=== PATIENT | female | born 1985 | race American Indian/Alaskan Native ===

== ENCOUNTER 2017-10-01 12:41 | Emergency (ER) | payer SELFPAY ==
[2017-10-01] MEDS ORDERED: TYLENOL ONE (13:42)
[2017-10-01] MEDS ORDERED: MOTRIN PO ONE (13:42)
[2017-10-01] MEDS ORDERED: GUAIFENESIN DM SYRUP PO ONE (13:42)
[2017-10-01] MEDS ORDERED: LIDOCAINE VISCOUS 2% PO ONE (13:42)
--- NOTE | 2017-10-01 14:02 | XRay Report ---
AP CHEST: HISTORY: chest pain AP view of the chest demonstrates a normal mediastinal and cardiac contour with clear lungs and normal bony and soft tissue structures. IMPRESSION: Unremarkable AP chest.
--- NOTE | 2017-10-01 14:17 | Emergency Department Report ---
ED ENT HPI - General Chief complaint: Sore Throat Stated complaint: SORE THROAT Time Seen by Provider: 10/01/17 13:23 Source: patient Mode of arrival: Ambulatory Limitations: No Limitations - History of Present Illness Initial comments: 32 year old female that comes in for sorethroat and cough for 5 days. Patient reports that [place] [facility] [place] Motrin only. No PMH NKDA. Denies any nausea, vomiting or abdominal pain. No fever but has had the chills. No PMH, NKDA only been taking Motrin. MD complaint: sore throat - Related Data Previous Rx's Medication Instructions Recorded Last Taken Type Benzonatate [Tessalon Perle] 100 mg PO TID PRN #15 capsule 10/01/17 Unknown Rx Ibuprofen 800 mg PO Q8H #15 tablet 10/01/17 Unknown Rx Allergies Allergy/AdvReac Type Severity Reaction Status Date / Time No Known Allergies Allergy Unverified 12/25/14 11:20 ED Dental HPI - General Chief complaint: Sore Throat Stated complaint: SORE THROAT Time Seen by Provider: 10/01/17 13:23 Source: patient Mode of arrival: Ambulatory Limitations: No Limitations - Related Data Previous Rx's Medication Instructions Recorded Last Taken Type Benzonatate [Tessalon Perle] 100 mg PO TID PRN #15 capsule 10/01/17 Unknown Rx Ibuprofen 800 mg PO Q8H #15 tablet 10/01/17 Unknown Rx Allergies Allergy/AdvReac Type Severity Reaction Status Date / Time No Known Allergies Allergy Unverified 12/25/14 11:20 ED Review of Systems ROS: Stated complaint: SORE THROAT Other details as noted in HPI ED Past Medical Hx - Past Medical History Previous Medical History?: No - Surgical History Past Surgical History?: No Additional Surgical History: HERNIA REPAIR - Social History Smoking Status: Never Smoker Substance Use Type: Prescribed - Medications Home Medications: Home Medications Medication Instructions Recorded Confirmed Last Taken Type Benzonatate [Tessalon Perle] 100 mg PO TID PRN #15 capsule 10/01/17 Unknown Rx Ibuprofen 800 mg PO Q8H #15 tablet 10/01/17 Unknown Rx ED Physical Exam - General Limitations: No Limitations ED Course Vital Signs 10/01/17 10/01/17 10/01/17 12:48 14:25 15:52 Temperature 99.6 F Pulse Rate 138 H 131 H Pulse Rate [ 115 H Anterior Bilateral Throughout] Respiratory 24 Rate Respiratory 18 Rate [Anterior Bilateral Throughout] Blood Pressure 141/100 Blood Pressure 144/94 [Right] O2 Sat by Pulse 95 Oximetry - Reevaluation(s) Reevaluation #1: 10/01/17 16:45 Reassessment. Patient has left upper lobe wheezing. This provided given her albuterol neb treatment. Reevaluation #2: 10/01/17 16:45 Reassessment after nebulizer treatment. Patient reports that she feels much better. Discussed the patient will prepare her for discharge. ED Medical Decision Making - Radiology Data Radiology results: report reviewed Unremarkable AP chest. - Medical Decision Making Patient has been seen by me and Dr. Mcfarlane in [place]. Chest xray was ordered and unremarkable. Patient is still tachy. Ordered IV normal saline bolus 1000ml. Critical care attestation.: If time is entered above; I have spent that time in minutes in the direct care of this critically ill patient, excluding procedure time. ED Disposition Clinical Impression: Viral syndrome Disposition: DC-01 TO HOME OR SELFCARE Is pt being admited?: No Does the pt Need Aspirin: No Condition: Stable Instructions: Viral Syndrome (ED) Additional Instructions: Please take medication as prescribed. Please follow up with her primary care provider if symptoms persist or gets worse. Prescriptions: Benzonatate [Tessalon Perle] 100 mg PO TID PRN #15 capsule PRN Reason: Cough Ibuprofen 800 mg PO Q8H #15 tablet Referrals: PRIMARY CARE, [Primary Care Provider] - 3-5 Days [facility] [Provider Group] - 3-5 Days Forms: Work/School Release Form(ED)
[2017-10-01] MEDS ORDERED: NACL 0.9% 1000 ML 1,000 ML IV ONE (14:25)
[2017-10-01] MEDS ORDERED: PROVENTIL IH ONE (15:20)
--- NOTE | 2017-10-01 15:27 | Emergency Department Report ---
Chief Complaint: Sore Throat Stated Complaint: SORE THROAT Time Seen by Provider: 10/01/17 13:23 - HPI History of Present Illness: The patient's 32-year-old female presents for evaluation of cough and soreness of throat. The patient reports 5 days of a nonproductive cough and shortness of throat, worse with swallowing. The patient denies dyspnea, neck stiffness, dysphagia, stridor, drooling, difficulty tolerating secretions, dysphonia, hoarseness of voice, abdominal pain. - Exam Vital Signs: Vital Signs 10/01/17 10/01/17 12:48 14:25 Temperature 99.6 F Pulse Rate 138 H 131 H Respiratory 24 Rate Blood Pressure 141/100 Blood Pressure 144/94 [Right] O2 Sat by Pulse 95 Oximetry MSE screening note: Focused history and physical exam performed. Due to findings the following was ordered: ED Disposition for MSE Condition: Stable Referrals: PRIMARY CARE, [Primary Care Provider] - 3-5 Days
[2017-10-01] MEDS ORDERED: NACL 0.9% 1000 ML 2,000 ML IV ONE (16:58)
[2017-10-01 17:40] LABS: Hematocrit 35.6 % (30.3-42.9); Hemoglobin 11.6 gm/dl (10.1-14.3); Mean Corpuscular HGB Conc 33 % (30-34); Mean Corpuscular Hemoglobin 30 pg (28-32); Mean Corpuscular Volume 93 fl (79-97); Platelet Count 344 K/mm3 (140-440); Red Blood Count 3.82 M/mm3 (3.65-5.03); Red Cell Distribution Width 14.1 % (13.2-15.2)
[2017-10-01 17:49] LABS: BUN/Creatinine Ratio 8; Blood Urea Nitrogen 5 mg/dL (7-17); Hemolysis Index 0
[2017-10-01 18:15] LABS: Basophils % (Manual) 0 % (0.0-1.8); Total Cells Counted 100
[2017-10-01 18:16] LABS: Anisocytosis Few; Ovalocytes Rare
[2017-10-01 18:55] VITALS: BP 126/78
== END 2017-10-01 20:20 | disposition home or self-care (01) ==
LOC: ED 12:41
DX: B34.9 Viral infection, unspecified (principal)
CPT/HCPCS: 36415; 71045; 80048; 83880; 84703; 85007; 85025; 87116; 87430; 94640; 96360; 96361; 99284; J7030

== ENCOUNTER 2021-12-13 17:29 | Emergency (ER) | payer OTHER ==
[2021-12-13 18:39] LABS: Hematocrit 38.9 % (30.3-42.9); Hemoglobin 12.6 gm/dl (10.1-14.3); Mean Corpuscular HGB Conc 32 % (30-34); Mean Corpuscular Volume 95 fl (79-97); Platelet Count 403 K/mm3 (140-440); Red Cell Distribution Width 13.3 % (13.2-15.2)
[2021-12-13 18:54] LABS: Alanine Aminotransferase 12 units/L (7-56); Albumin 4.3 g/dL (3.9-5); Blood Urea Nitrogen 13 mg/dL (7-17); Calcium 9.7 mg/dL (8.4-10.2); Hemolysis Index 20
[2021-12-13 18:58] LABS: BUN/Creatinine Ratio 19
[2021-12-13 20:04] LABS: Bilirubin,Urine NEG (Negative); Blood,Urine NEG (Negative); Color,Urine Straw (Yellow); Protein,Urine <15 mg/dL mg/dL (Negative); RBC,Urine < 1.0 /HPF (0.0-6.0); Urobilinogen,Urine < 2.0 mg/dL (<2.0)
[2021-12-13 20:05] LABS: HCG Qualitative,Urine Negative (Negative); WBC,Urine < 1.0 /HPF (0.0-6.0)
--- NOTE | 2021-12-13 21:19 | Emergency Department Report ---
ED General Adult HPI - General Chief complaint: Weakness Stated complaint: DEHYDEATED Source: patient Mode of arrival: Ambulatory Limitations: No Limitations - History of Present Illness Initial comments: Patient is a 36-year-old -[place] female with no past medical history presents to the ED with complaint of acute onset persistent generalized weakness and fatigue for the last 3 days. Patient states that she has been overworking herself at work and in the last 3 days she just felt tired and weak and unable to walk anymore. Patient denies dizziness, syncope, chest pain, fever, chills, cough, nausea and vomiting, diarrhea, headache, urinary frequency and urgency, shortness of breath or vaginal bleeding. MD Complaint: Generalized weakness and fatigue -: Sudden, days(s) (3) Location: back Radiation: non-radiation Severity scale (0 -10): 0 Consistency: constant Improves with: none Worsens with: movement Associated Symptoms: denies other symptoms, weakness. denies: confusion, chest pain, cough, diaphoresis, fever/chills, headaches, loss of appetite, malaise, nausea/vomiting, seizure, shortness of breath, syncope Treatments Prior to Arrival: none - Related Data Previous Rx's Medication Instructions Recorded Last Taken Type Benzonatate [Tessalon Perle] 100 mg PO TID PRN #15 capsule 10/01/17 Unknown Rx Ibuprofen [Ibuprofen 800] 800 mg PO Q8H #15 tablet 10/01/17 Unknown Rx Allergies Allergy/AdvReac Type Severity Reaction Status Date / Time No Known Allergies Allergy Verified 12/13/21 20:20 ED Review of Systems ROS: Stated complaint: DEHYDEATED Other details as noted in HPI Constitutional: malaise, weakness. denies: chills, fever Eyes: denies: eye pain, eye discharge, vision change ENT: denies: ear pain, throat pain Respiratory: denies: cough, shortness of breath, wheezing Cardiovascular: denies: chest pain, palpitations Endocrine: no symptoms reported Gastrointestinal: denies: abdominal pain, nausea, vomiting, diarrhea Genitourinary: denies: urgency, dysuria, discharge Musculoskeletal: denies: back pain, joint swelling, arthralgia Skin: denies: rash, lesions Neurological: denies: headache, weakness, paresthesias Psychiatric: denies: anxiety, depression Hematological/Lymphatic: denies: easy bleeding, easy bruising ED Past Medical Hx - Past Medical History Previous Medical History?: No - Surgical History Past Surgical History?: No Additional Surgical History: HERNIA REPAIR - Social History Smoking Status: Never Smoker Substance Use Type: None - Medications Home Medications: Home Medications Medication Instructions Recorded Confirmed Last Taken Type Benzonatate [Tessalon Perle] 100 mg PO TID PRN #15 capsule 10/01/17 12/13/21 Unknown Rx Ibuprofen [Ibuprofen 800] 800 mg PO Q8H #15 tablet 10/01/17 12/13/21 Unknown Rx ED Physical Exam - General Limitations: No Limitations General appearance: alert, in no apparent distress - Head Head exam: Present: atraumatic, normocephalic, normal inspection - Eye Eye exam: Present: normal appearance, PERRL, EOMI Pupils: Present: normal accommodation - ENT ENT exam: Present: normal exam, normal orophraynx, mucous membranes moist, TM's normal bilaterally, normal external ear exam - Neck Neck exam: Present: normal inspection, full ROM. Absent: tenderness - Respiratory Respiratory exam: Present: normal lung sounds bilaterally. Absent: respiratory distress, wheezes, rales, stridor, chest wall tenderness, accessory muscle use, decreased breath sounds, other - Cardiovascular Cardiovascular Exam: Present: regular rate, normal rhythm, normal heart sounds. Absent: systolic murmur, diastolic murmur, rubs, gallop - GI/Abdominal GI/Abdominal exam: Present: soft, normal bowel sounds. Absent: distended, tenderness, guarding, rebound, hyperactive bowel sounds - Extremities Exam Extremities exam: Present: normal inspection, full ROM, normal capillary refill. Absent: tenderness - Back Exam Back exam: Present: normal inspection, full ROM. Absent: tenderness, CVA te nderness (R), CVA tenderness (L), muscle spasm, paraspinal tenderness - Neurological Exam Neurological exam: Present: alert, oriented X3, CN II-XII intact, normal gait, reflexes normal - Psychiatric Psychiatric exam: Present: normal affect, normal mood, anxious - Skin Skin exam: Present: warm, dry, intact, normal color. Absent: rash ED Course Vital Signs 12/13/21 12/13/21 12/13/21 17:56 19:51 20:19 Temperature 98.6 F 98.5 F Pulse Rate 94 H 73 Respiratory 18 20 Rate Blood Pressure 133/82 Blood Pressure 119/83 [Right] O2 Sat by Pulse 100 99 100 Oximetry ED Medical Decision Making - Lab Data Result diagrams: 12/13/21 18:15 12/13/21 18:15 - Medical Decision Making This is a 36-year-old -[place] female with no past medical history presents to the ED with complaint of acute onset persistent generalized weakness and fatigue for the last 3 days. Patient states that she has been overworking herself at work and in the last 3 days she just felt tired and weak and unable to walk anymore. In the ED, patient is alert and oriented x3 and is not in any distress. Patient is hemodynamically stable. Lab test results were reviewed and are all nonactionable. Patient was discharged home and advised to follow-up with her primary care physician in as needed. Patient was advised to return to the ED immediately if symptoms get worse. - Differential Diagnosis Anemia; dehydration; anxiety; Critical care attestation.: If time is entered above; I have spent that time in minutes in the direct care of this critically ill patient, excluding procedure time. ED Disposition Clinical Impression: Generalized weakness Fatigue Qualifiers: Fatigue type: due to excessive exertion Encounter type: initial encounter Qualified Code(s): T73.3XXA - Exhaustion due to excessive exertion, initial e ncounter Disposition: 01 HOME / SELF CARE / HOMELESS Is pt being admited?: No Does the pt Need Aspirin: No Condition: Stable Instructions: Weakness, [id number], Fatigue Additional Instructions: All lab test results were reviewed and are all nonactionable. Therefore doing plenty of fluids, get plenty of rest and follow-up with your primary care physician as needed. Return to the ED immediately if symptoms get worse. Referrals: [facility] [Provider Group] - 3-5 Days Forms: Work/School Release Form(ED) Time of Disposition: 21:17 Print Language: CITIZEN OF [place]
[2021-12-13 21:44] VITALS: BP 121/69
--- NOTE | 2021-12-15 10:22 | Electrocardiograph Report ---
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
== END 2021-12-13 21:43 | disposition home or self-care (01) ==
LOC: ED 17:29
DX: R53.1 Weakness (principal); R53.83 Other fatigue
CPT/HCPCS: 36415; 80053; 81001; 81025; 83690; 85027; 93005; 99283